=== PATIENT | female | born 1960 | race Caucasian/White ===

== ENCOUNTER 2017-01-25 21:03 | Emergency (ER) | payer BC, OTHER ==
[2017-01-25 21:11] VITALS: RESP 18; TEMP 97.7
[2017-01-25] MEDS ORDERED: DIPHENHYDRAMINE 25 MG CAP ONE (21:53)
[2017-01-25] MEDS ORDERED: DEXAMETHASONE 20 MG/5 ML (4 MG/ML SOL) ONE (21:53)
[2017-01-25] MEDS: DEXAMETHASONE 20 MG/5 ML (4 MG/ML SOL) IM ONE (21:55)
[2017-01-25] MEDS: DIPHENHYDRAMINE 25 MG CAP PO ONE (21:55)
[2017-01-25 22:25] VITALS: BP 148/91; PULSE 80; O2SAT 99
== END 2017-01-25 22:19 | disposition home or self-care (01) | DRG 607 ==
LOC: ED 21:03
DX: L50.9 Urticaria, unspecified (principal)
CPT/HCPCS: 96372; 99283; J1100

== ENCOUNTER 2017-03-09 14:02 | Outpatient (CLI) | payer OTHER ==
[2017-01-25 22:25] VITALS: O2SAT 99
== END 2017-03-09 14:03 | disposition home or self-care (01) | DRG 556 ==
LOC: CONVCARE 14:02
PROVIDERS: ATTEND Orthopaedic Surgery
DX: M25.561 Pain in right knee (principal); Z96.653 Presence of artificial knee joint, bilateral; M25.562 Pain in left knee
CPT/HCPCS: 73562